=== PATIENT | male | born 1980 | race Caucasian/White ===

== ENCOUNTER 2018-09-15 13:48 | Emergency (ER) | payer SELFPAY ==
[~2018-09-15] VITALS: Ht 167.6 cm; Wt 63.5 kg
[2018-09-15 14:08] VITALS: BP 124/84
--- NOTE | 2018-09-15 14:09 | Emergency Room Report ---
History of Present Illness General Chief Complaint: skin rash Source: Patient Present Illness HPI Patient is a 38-year-old male presented after skin rash. The skin rash and itching present for several months. Patient reports having increased the rash to his face the right shoulder and belt buckle area. Patient denied any fever. He reports as being moderately itchy. He denies any allergies.The patient was brought in by [facility] for medical clearance Allergies: Coded Allergies: SHELLFISH DERIVED (Verified Allergy, Unknown, 09/15/18) Patient History Past Medical History: see triage record Reviewed Nursing Documentation: PMH: Agreed; PSxH: Agreed Review of Systems All Other Systems: negative except mentioned in HPI Physical Exam General Appearance: well appearing, no apparent distress, alert, GCS 15 Head: normocephalic, atraumatic ENT: hearing grossly normal, normal voice Neck: full range of motion, supple Respiratory: no respiratory distress, speaking full sentences Musculoskeletal: no calf tenderness Neurologic: normal gait Psychiatric: mood/affect normal Skin: other - multiple excoriated papules to right upper extremity, face and shoulder Medical Decision Making Diagnostic Impression: Primary Impression: Skin rash Additional Impression: Folliculitis ER Course The patient presented for skin rash. Differential diagnosis included was not limited to MRSA infection, scabies, folliculitis among others. Patient has a benign exam and does not appear to require any further imaging or laboratory testing at this time. The patient appears have some evidence of a nickel allergy. The patient additionally appears to have some contact dermatitis to the right upper extremity with a mild follicular infection. The patient was given prescription for anti-itch medications as well as antibiotics. The patient is medically cleared for booking. The [facility] follow[facility]up with [facility] Status: improved Disposition: HOME, SELF-CARE Condition: Stable Scripts Trimethoprim/Sulfamethoxazole 160/800* (BACTRIM DS TABLET*) 1 Each Tablet 1 TAB ORAL Q12H, #14 TAB 0 Refills Prov: Curt Cruz MD 09/15/18 Diphenhydramine Hcl (BENADRYL ALLERGY) 25 Mg Tablet 25 MG PO EVERY 6 HOURS for itching, #30 TAB Prov: Curt Cruz MD 09/15/18 Hydrocortisone (Hydrocortisone Cream 2.5%) Y Cream.appl 1 APPLIC TP BID, #30 GM Prov: Curt Cruz MD 09/15/18 Curt Cruz MD Sep 15, 2018 14:08
[2018-09-15] MEDS ORDERED: BACTRIM DS TAB1 EAC1 ORAL (14:10)
[2018-09-15] MEDS ORDERED: BENADRYL ALLERG25 M1 PO (14:10)
[2018-09-15] MEDS ORDERED: HYDROCORTISONE30 G2 TP (14:10)
[2018-09-15 14:25] VITALS: BP 124/84
== END 2018-09-15 14:26 | disposition home or self-care (01) ==
LOC: EMR 14:10
DX: L73.9 Follicular disorder, unspecified (principal); Z91.013 Allergy to seafood
CPT/HCPCS: 99283